=== PATIENT | male | born 1965 | race Caucasian/White ===

== ENCOUNTER → 2019-10-22 | Outpatient (CLI) | payer BC ==
--- NOTE | 2019-10-22 14:38 | REPVR ---
PROCEDURE INFORMATION: Exam: CT Neck Without Contrast Exam date and time: 10/22/2019 2:07 PM Age: 54 years old Clinical indication: Mass, lump, or swelling in neck; Additional info: Swelling, mass of neck TECHNIQUE: Imaging protocol: Computed tomography images of the neck without contrast. Radiation optimization: All CT scans at this facility use at least one of these dose optimization techniques: automated exposure control; mA and/or kV adjustment per patient size (includes targeted exams where dose is matched to clinical indication); or iterative reconstruction. COMPARISON: No relevant prior studies available. FINDINGS: Nasopharynx: Unremarkable. Oropharynx: Unremarkable. No significant tonsillar enlargement. Hypopharynx: Unremarkable. Larynx: Unremarkable. Normal epiglottis. Retropharyngeal space: Unremarkable. Submandibular/Parotid glands: Normal. Glands are normal in size. Thyroid: Normal. No enlarged or calcified nodules. Lymph nodes: See "Soft tissues" finding. Trachea: Visualized trachea is unremarkable. Lungs: Unremarkable as visualized. Bones/joints: Unremarkable. No acute fracture. Soft tissues: A BB was placed on the skin over the left lateral neck at the level of C5/6 to indicate an area of swelling. No underlying mass is identified on this noncontrast exam. There are some small densities which likely represent small lymph nodes. These are not enlarged by CT size criteria. Other findings: There is a left-sided pacemaker. IMPRESSION: A BB was placed on the skin over the left lateral neck at the level of C5/6 to indicate an area of swelling. No underlying mass is identified on this noncontrast exam. There are some small densities which likely represent small lymph nodes. These are not enlarged by CT size criteria. If patient's symptoms persist and/or worsen, followup postcontrast MRI of the neck would be recommended. Electronically signed by: Matt Santana On 10/22/2019 14:38:08 PM
== END ==
LOC: M RAD 13:49
PROVIDERS: ATTEND Otolaryngology
DX: R22.1 Localized swelling, mass and lump, neck (principal)

== ENCOUNTER → 2021-04-06 | Outpatient (CLI) | payer BC ==
[~2021-04-06] MED LIST: METHACHOLINE KIT (J7674) INH ONE
== END ==
LOC: M CARPUL 08:31
PROVIDERS: ATTEND Physician Assistant
DX: R06.00 Dyspnea, unspecified (principal)
CPT/HCPCS: 94070; J7674

== ENCOUNTER → 2021-09-06 | Outpatient (CLI) | payer BC ==
[~2021-09-06] MED LIST changes: +E-Z-GAS II EFFERVESCENT PACKET (SODIUM BICARB./CITRIC ACID/SIMETHICONE) As Ordered ONE; +E-Z-HD 98% w/w 340GM SUSP BTL As Ordered ONE; +E-Z-PAQUE 96% w/w SUSP 176GM BTL As Ordered ONE; -METHACHOLINE KIT (J7674) INH ONE
== END ==
LOC: M RAD 08:57
PROVIDERS: ATTEND Surgery
DX: K21.9 Gastro-esophageal reflux disease without esophagitis (principal); K82.8 Other specified diseases of gallbladder

== ENCOUNTER 2021-11-12 06:07 | Day surgery (SDC) | payer BC ==
[~2021-11-12] VITALS: Ht 162.6 cm; Wt 64.6 kg
[~2021-11-12 06:07] MED LIST changes: +ALBU8.5H INH; +CARV3.12 PO; -E-Z-GAS II EFFERVESCENT PACKET (SODIUM BICARB./CITRIC ACID/SIMETHICONE) As Ordered ONE; -E-Z-HD 98% w/w 340GM SUSP BTL As Ordered ONE; -E-Z-PAQUE 96% w/w SUSP 176GM BTL As Ordered ONE; +FLUT11IN INH; +LORA-674 PO; +LOSA25TA13 PO; +OMEP40CA5 PO; +PRAV20TA2 PO
[2021-11-12] MEDS ORDERED: LR 1,000 ML IV SCH ×2 (06:30→08:50)
[2021-11-12] MEDS ORDERED: fentaNYL 100 MCG/2 ML INJECTION As Ordered ONE ×2 (07:06→07:58)
[2021-11-12] MEDS ORDERED: MIDAZOLAM INJ 2MG/2ML VIAL (J2250 PER 1MG) As Ordered ONE (07:06)
[2021-11-12] MEDS ORDERED: propofoL 200 MG/20 ML VIAL As Ordered ONE (07:07)
[2021-11-12] MEDS ORDERED: dexameTHASONE 4 MG/ML 1ML VIAL (J1100 PER 1MG) As Ordered ONE (07:07)
[2021-11-12] MEDS ORDERED: ONDANSETRON 4MG 2ML VIAL As Ordered ONE (07:07)
[2021-11-12] MEDS ORDERED: ROCURONIUM BROMIDE 50 MG/5 ML VIAL As Ordered ONE ×2 (07:07→07:59)
[2021-11-12] MEDS ORDERED: LIDOCAINE 2% 100MG/5ML SDV (FOR ANES.) As Ordered ONE (07:07)
[2021-11-12] MEDS ORDERED: BUPIVACAINE/EPIN 0.25% 30 ML VIAL As Ordered ONE (07:15)
[2021-11-12] MEDS ORDERED: ACETAMINOPHEN 1000MG 100ML IV BTL (OFIRMEV) (J0131 PER 10MG) As Ordered ONE (07:53)
[2021-11-12] MEDS ORDERED: KETOROLAC 60MG 2ML VIAL As Ordered ONE (08:07)
[2021-11-12] MEDS ORDERED: SUGAMMADEX SODIUM 500 MG/5 ML VIAL (BRIDION) As Ordered ONE (08:07)
[2021-11-12] MEDS ORDERED: ONDANSETRON 4MG 2ML VIAL IV PRN (08:50)
[2021-11-12] MEDS ORDERED: fentaNYL 100 MCG/2 ML INJECTION IV PRN (08:50)
[2021-11-12] MEDS: oxyCODONE 5MG TAB PO PRN ×2 (09:12→09:51)
[2021-11-12] MEDS ORDERED: NORCO, ANEXSIA 5/325MG TABLET (HYDROcodone/ACETAMINOPHEN) PO PRN (09:25)
[2021-11-12] MEDS: HYDROMORPHONE HCL 0.5 MG/ 0.5 ML SYRINGE (J1170 PER 1) IV PRN ×2 (09:55→10:05)
[2021-11-12 11:00] VITALS: BP 136/85
== END 2021-11-12 11:06 | disposition home or self-care (01) ==
LOC: M SDC 06:07
PROVIDERS: ATTEND Surgery
DX: K80.10 Calculus of gallbladder with chronic cholecystitis without obstruction (principal); R10.13 Epigastric pain; E78.5 Hyperlipidemia, unspecified; K21.9 Gastro-esophageal reflux disease without esophagitis; J45.909 Unspecified asthma, uncomplicated; I11.9 Hypertensive heart disease without heart failure; I42.0 Dilated cardiomyopathy; Z95.0 Presence of cardiac pacemaker; Z79.899 Other long term (current) drug therapy
CPT/HCPCS: 47562; 88304; J0131; J1100; J1170; J1885; J2250; J2405; J3010; S2900

== ENCOUNTER 2022-01-19 11:08 | Day surgery (SDC) | payer BC ==
[~2022-01-19] VITALS: Ht 162.6 cm; Wt 61.2 kg
[~2022-01-19 11:08] MED LIST changes: +NS 1,000 ML IV ONE; +fentaNYL 100 MCG/2 ML INJECTION As Ordered ONE; +propofoL 200 MG/20 ML VIAL As Ordered ONE
[2022-01-19 12:31] VITALS: BP 131/84
== END 2022-01-19 12:41 | disposition home or self-care (01) ==
LOC: M OPP 11:08
PROVIDERS: ATTEND Surgery
DX: Z12.11 Encounter for screening for malignant neoplasm of colon (principal); Z86.010 Personal history of colon polyps; D12.5 Benign neoplasm of sigmoid colon; K22.89 Other specified disease of esophagus; I10 Essential (primary) hypertension; E78.00 Pure hypercholesterolemia, unspecified; I42.9 Cardiomyopathy, unspecified; J45.909 Unspecified asthma, uncomplicated; Z79.02 Long term (current) use of antithrombotics/antiplatelets; Z79.51 Long term (current) use of inhaled steroids; Z79.52 Long term (current) use of systemic steroids; Z79.899 Other long term (current) drug therapy; Z15.89 Genetic susceptibility to other disease; Z95.810 Presence of automatic (implantable) cardiac defibrillator
CPT/HCPCS: 43239; 45380; 88305; J3010

== ENCOUNTER 2024-06-11 06:37 | Day surgery (SDC) | payer BC ==
[~2024-06-11] VITALS: Ht 162.6 cm; Wt 62.5 kg
[~2024-06-11 06:37] MED LIST changes: -FLUT11IN INH; +FLUT12AE6 INH; +LIDOCAINE 2% 100MG/5ML SDV (FOR ANES.) As Ordered ONE; +LORA-1041 PO; -LORA-674 PO; -NS 1,000 ML IV ONE; +PRED10PA2 PO; +XARE10TA PO; +flovent inhaler INH
[2024-06-11] MEDS ORDERED: GLYCOPYRROLATE INJ 0.2 MG/ML 2 ML VIAL As Ordered ONE (07:08)
[2024-06-11 08:02] VITALS: TEMP 97
[2024-06-11 08:20] VITALS: BP 137/86; O2SAT 95
== END 2024-06-11 08:26 | disposition home or self-care (01) ==
LOC: M OPP 06:37
PROVIDERS: ATTEND Internal Medicine Gastroenterology
DX: B37.81 Candidal esophagitis (principal); K29.70 Gastritis, unspecified, without bleeding; R13.10 Dysphagia, unspecified; R07.9 Chest pain, unspecified; R05.3 Chronic cough; I48.91 Unspecified atrial fibrillation; Z95.810 Presence of automatic (implantable) cardiac defibrillator; Z91.048 Other nonmedicinal substance allergy status; Z79.01 Long term (current) use of anticoagulants; Z79.52 Long term (current) use of systemic steroids; Z79.899 Other long term (current) drug therapy; J45.909 Unspecified asthma, uncomplicated
CPT/HCPCS: 43239; 88305; J1596; J3010